=== PATIENT | male | born 1960 | race Caucasian/White ===

== ENCOUNTER 2025-07-09 12:45 | Inpatient (IN) | payer BC, SELFPAY ==
[2025-07-09] VITALS (8 sets, daily range): BP systolic 142–183; BP diastolic 82–101; BMI 31.4
--- NOTE | 2025-07-09 09:17 | ED.GENMED ---
History of Present Illness
General
Chief Complaint: Flank Pain
Source: patient
Time Seen by Provider: 07/09/25 09:06
History of Present Illness
History of Present Illness:
65-year-old male left flank and back pain. Started overnight. Took 3 Advil about an hour ago. Some nausea. Cannot get comfortable with this discomfort. Does not feel musculoskeletal to him. No urinary symptoms. No fever or chills. No change
in bowels.
Past History
Past History
ED Past Medical History: GERD, HTN and Hypercholesterolemia
ED Past Surgical History: Orthopedic
Social History
Tobacco: Other (Occasional cigar)
Alcohol: Occasional
Drug: None
Personal:
Living: with family
Employment: Employed
Family History
Family History: CAD
Review of Systems
Review of Systems
All Other Systems: Not applicable
Constitutional: Denies fever or chills
Phy Exam
Physical Exam
Physical Exam:
GENERAL: Alert and oriented in no apparent distress
EYE: Orbits normal.
NECK: Supple
CARDIAC: Regular rate and rhythm without any obvious murmurs.
LUNGS: Clear breath sounds,normal
ABDOMEN: Soft, without focal tenderness or distention. No CVA tenderness
NEUROLOGICAL: Alert and oriented , grossly non-focal
SKIN: Warm and dry, no rash or lesion, no discoloration, skin intact.
MUSCULOSKELETAL: No edema,no deformity.Good color. No clear musculoskeletal component. No pain with sitting up. No pain with straight leg raising.
PSYCH: Normal and appropriate interaction.
Course
Orders/Labs/Results
Orders:
Orders
07/09/25 09:16
CT Abd/pel Without Iv Or Oral Urgent
Comment:
Reason For Exam: Left flank pain
IV Insert/Care/Rem.- Treatment PRN
0.9% Sodium Chloride 500 ml [Nss] 500 ml IV BOLUS
Acetaminophen 1000MG/100Ml [Ofirmev] 1,000 mg in 100 ml IV ONCE
Acetaminophen IV Indication:: ED Narcotic Naive Pt-ONCE
Ondansetron Injectable [Zofran] 4 mg IV NOW STA
07/09/25 09:25
Complete Blood Count/With Diff Urgent
Comprehensive Metabolic Panel Urgent
07/09/25 09:31
HYDROmorphone [Dilaudid] 0.5 mg .ROUTE .STK-MED ONE
07/09/25 09:32
HYDROmorphone [Dilaudid] 0.5 mg IV NOW STA
07/09/25 09:48
HYDROmorphone [Dilaudid] 0.5 mg IV NOW STA
07/09/25 11:46
Urinalysis Reflex To Culture Urgent
Date Specimen was Collected: 07/09/25
Time Specimen was Collected: 11:41
Urine Microscopic Reflex Cult Urgent
07/09/25 12:12
Admit/Transfer Patient As Directed
Co-Sign Provider:
Level of Care: Inpatient admission
Assign to:: Medical/Surgical
Physician / Group: gabby
Diagnosis: ureteral stone
Reason for Hospitalization: ureteral stone
Expected length of stay greater than two midnights?: Yes
ELOS- Estimated Length of Stay in days: 2
I certify the patient meets the requirements for IP care: Yes
PRN Pain Medication Management As Directed
May give lesser potent ordered pain med per pt: Yes
preference::
Protocol:: Medication orders for pain may be administered in a
manner that supports deferring to patient preference
when the pt is:
- Requesting an ordered lesser potent pain medication.
Least to most potent pain medications are defined
as: acetaminophen < NSAID < tramadol < opioids
(morphine, oxycodone, hydromorphone).
- Requesting a lesser dose of the same medication IF
ORDERED.
- Requesting a less intrusive route of administration
if both routes are prescribed by the provider (PO <
IV).
07/09/25 12:13
Code Status As Directed
Resuscitation Status: Full Code
07/09/25 12:52
HYDROmorphone [Dilaudid] 0.5 mg IV Q4HPRN PRN
07/09/25 13:20
Lorazepam [Ativan] 0.5 mg PO DAILYPRN PRN anxiety
Ondansetron Injectable [Zofran] 4 mg IV Q6HPRN PRN
07/09/25 13:20
UROLOGY CONSULT Routine
Consulting Provider: Dinesh Castanon
Was physician already notified: Yes
Activity As Directed
Activity Level: As Tolerated
Pneumatic Compression Sleeves As Directed
Type: Knee high
Vital Signs As Directed
Frequency: Per unit guidelines
DX Deep Vein Thrombosis Video Routine
07/09/25 20:00
Vit C/Vit E/Lutein/Min/Bridgeton-3 [Ocuvite Softgel] 1 cap PO BID
07/10/25 06:00
Complete Blood Count/With Diff IN AM
Comprehensive Metabolic Panel IN AM
Levothyroxine [Synthroid] 175 mcg PO DAILY@0600
07/10/25 08:00
Atenolol [Tenormin] 50 mg PO DAILY
Atorvastatin [Lipitor] 20 mg PO DAILY
Lactobac/Bifidobac [Visbiome] 1 cap PO DAILY
Multivitamin [Theragran] 1 tablet PO DAILY
Pantoprazole [Protonix] 40 mg PO DAILY
Valsartan [Diovan] 160 mg PO DAILY
Zinc 50mg (Zinc Sulfate 220mg) [Zinc] 50 mg PO DAILY
coenzyme Q10 [CoQ-10] 100 mg PO DAILY
omega-3 fatty acids-fish oil 1 cap PO DAILY
Abnormal Lab Results
07/09/25 07/09/25
11:46
RBC 4.45 L 10^6/uL
(4.70-6.10)
MCV 94.2 H fL
(80.0-94.0)
MCH 31.7 H pg
(27.0-31.0)
MPV 11.4 H fL
(7.4-10.4)
Abs Immat Gran (auto) 0.1 H 10^3/uL
(0-0.05)
Absolute Monos (auto) 0.7 H 10^3/uL
(0.1-0.6)
Immature Gran % 0.8 H %
(0-0.5)
BUN 24 H mg/dl
(9-20)
Glucose 170 H mg/dl
(70-99)
ALT 63 H U/L
(0-50)
Alkaline Phosphatase 178 H U/L
(38-126)
Ur Occult Blood Reflex 4+ A
(Negative)
Urine RBC 40-50 A /HPF
(0-2)
Urine Albumin (Reflex) 2+ A
(Neg - Trace)
07/09/25 09:25
07/09/25 09:25
Vital Signs
Initial and Last Documented VS:
Initial Vital Signs
Temp Pulse Resp BP Pulse Ox
98.6 F 63 16 183/101 98
07/09/25 08:50 07/09/25 08:50 07/09/25 08:50 07/09/25 08:50 07/09/25 08:50
Last Documented Vital Signs
Temp Pulse Resp BP Pulse Ox
98.3 F 70 16 142/93 93
07/09/25 13:21 07/09/25 13:21 07/09/25 13:21 07/09/25 13:21 07/09/25 14:06
MDM/Problems Addressed
Differential Diagnosis Includes:
Patient presenting with nontraumatic left flank pain. Started overnight. Not describing any infectious issues. Does not appear to be obviously musculoskeletal. High on the list would be obstructing kidney stone. Pain management workup in
progress
*Pulse Oximetry
SaO2: 98
Oxygen Mode of Delivery: Room air
Patient hypoxic: no
*Critical Care Note
Total Time (30-74mins, 75-104mins- exclusive of procedures): Not Applicable
Data Reviewed
Review of Other/Old Records Reveals: Labs, Records and Radiology Studies
ED Attending Note
-
Portions of this chart may have been created with voice recognition software.� Occasional wrong word or��sound alike� substitutions may have occurred due to the inherent limitations of voice recognition software.
Discharge Plan
Departure
Patient Disposition: Admit
Date of Disposition: 07/09/25
Time of Disposition: 12:01
Presentation/result/management discussed w/ accepting MD/DO: Urology
Discharge Problem:
Obstructing left kidney stone
Interventions
Interventions:
*Risk Screen - Suicide Last Done: 07/09/25 08:50
*General Assessment Last Done: 07/09/25 08:50
*Neglect/Abuse Screening Last Done: 07/09/25 08:50
*ED- Fall Risk Assessment Last Done: 07/09/25 09:35
*ED COVID-19 Vaccine History Last Done: 07/09/25 13:25
*Nursing Disposition Last Done: 07/09/25 13:22
HS-Irbijt-Hkuvwdfofs Assessment Last Done: 07/09/25 09:35
ED-Male Genitourinary Assessment Last Done: 07/09/25 09:35
Discharge Date and Time
Discharge Date/Time: 07/09/25 13:23
[2025-07-09] MEDS: ZOFRAN 4 MG IV (09:22)
[2025-07-09] MEDS: OFIRMEV 100 IV (09:22)
[2025-07-09] MEDS: NSS 500 IV (09:24)
[2025-07-09 09:32] LABS: Hematocrit 41.9 % (39.0-52.0); Hemoglobin 14.1 g/dL (13.0-18.0); Mean Corp Hgb Conc. 33.7 g/dL (33.0-37.0); Mean Corpuscular Volume 94.2 fL (80.0-94.0); Nucleated Red Blood Cells % 0 % (-); Platelet Count 196 10^3/uL (130-400); Red Cell Dist. Width 12.8 % (11.5-14.5)
[2025-07-09] MEDS: DILAUDID 0.5 MG IV ×4 (09:33→18:05)
[2025-07-09 09:43] LABS: ALT (SGPT) 63 U/L (0-50); AST (SGOT) 41 U/L (17-59); Albumin 4.5 g/dl (3.5-5.0); Alkaline Phosphatase 178 U/L (38-126); Blood Urea Nitrogen 24 mg/dl (9-20); Calcium 9.2 mg/dl (8.4-10.2); Carbon Dioxide 26 mmol/L (22-30); Chloride 106 mmol/L (98-107); Glucose 170 mg/dl (70-99); Potassium 4.5 mmol/L (3.5-5.1); Sodium 138 mmol/L (135-145); Total Protein 7.3 g/dl (6.3-8.2); eGFR > 60.00
[2025-07-09 12:10] LABS: Urine Character Clear (Clear)
--- NOTE | 2025-07-09 12:14 | HPS.HSE ---
Addendum entered and electronically signed by Kenneth Velasco MD 07/09/25 14:27:
Urology planning on intervention on . IV fluids and flomax in the meantime.
Original Note:
Family Physician
-
Family Physician: Bri Becerra
Chief Complaint
-
left flank pain
History of Present Illness
65-year-old male past medical history of nephrolithiasis, hypertension, GERD, hypothyroidism, partial small bowel obstruction presenting with left flank pain starting last night radiating to the groin. Denies any urinary symptoms. Denies blood in
the urine. Denies fevers or chills. Did have some nausea without vomiting. Denies diarrhea.
He smokes cigars on weekends. Alcohol on the weekends.
Medical History
Past Medical History
Past Medical History: Reports Other (nephrolithiasis, hypertension, GERD, hypothyroidism, partial small bowel obstruction)
Past Surgical History: Reports Other (Knee surgery,)
Social History
Tobacco: Smoker
Alcohol: Occasional
Drug: None
Family History
Family History: Not pertinent
Allergies / Home Medications
Allergies reflects when Allergies were last updated in [facility].
Home Medications with original date entered in [facility]
Allergy/Medication List:
Allergies
Allergy/AdvReac Type Severity Reaction Status Date / Time
No Known Allergies Allergy Unverified 07/09/25 08:50
Home Medications
aspirin 81 mg tablet,delayed release 81 mg PO DAILY 06/19/15
atenolol 25 mg tablet 25 mg PO DAILY 06/19/15
atorvastatin 10 mg tablet 10 mg PO QPM 06/19/15
lansoprazole 30 mg capsule,delayed release (Prevacid) 30 mg PO DAILY 06/19/15
levothyroxine 150 mcg tablet 150 mcg PO QPM 06/19/15
multivitamin (Multi-Day tablet) 1 ea PO DAILY 06/19/15
omega 0-kfr-btg-fish oil 500 mg (200mg-300mg)-1,000 mg capsule 1 ea PO BID 12/07/19
Review of Systems
-
History Source: Patient
A 12 point ROS was completed and negative except as noted: Yes
Constitutional: Reports No Symptoms
EENT: Reports No Symptoms
Respiratory: Reports No Symptoms
Cardiac: Reports No Symptoms
Abdomen/GI: Reports No Symptoms
: Reports See HPI
Musculoskeletal: Reports No Symptoms
Skin: Reports No Symptoms
Neurological: Reports No Symptoms
Endocrine: Reports No Symptoms
Hematologic/Lymphatic: Reports No Symptoms
Psych: Reports No Symptoms
Physical Exam
Vital Signs
Vital Signs
Temp Pulse Resp BP Pulse Ox
98.6 F 63 16 164/97 98
07/09/25 08:50 07/09/25 08:50 07/09/25 08:50 07/09/25 10:10 07/09/25 09:20
Physical Exam
General: Well Developed, Well Nourished and No Apparent Distress
HEENT: NormoCephalic, Moist mucous membranes and Atraumatic
Respiratory: Clear
Cardiac: S1/S2 and Regular Rhythm; No Murmur or Rub
GI: Soft, Non Tender, Non Distended and Normal Bowel Sounds; No Organomegaly
Rectal: Deferred by Provider
Musculoskeletal: No Clubbing, No Cyanosis and No Edema
Skin: No Rash
Neuro: Nonfocal/grossly intact
Laboratory Results
-
07/09/25 09:25
07/09/25 09:25
Laboratory Results
Total Bilirubin 0.6 mg/dl (0.2-1.3) 07/09/25 09:25
AST 41 U/L (17-59) 07/09/25 09:25
ALT 63 U/L (0-50) H 07/09/25 09:25
Alkaline Phosphatase 178 U/L (38-126) H 07/09/25 09:25
Data Reviewed
-
Lab Data: Labs Reviewed by me
Old Records: Reviewed
Impression/Plan
-
IMPRESSION:
PLAN:
# Proximal left ureteral stone
-Not septic
- N.p.o.
- IV fluids
-Zofran, Dilaudid as needed
- Urology consulted
Essential hypertension
- Continue atenolol
- Hold aspirin
GERD
- Continue lansoprazole
Hypothyroidism
- Continue levothyroxine
History of partial small bowel obstruction
Hypercholesterolemia
- Continue statin
Full code
DVT prophylaxis�SCDs
N.p.o.
--- NOTE | 2025-07-09 12:27 | CM ---
CM reviewed chart and met with pt and his bedside in ED. Lives with in 2 story home, 2-3 CHARU, has first floor half bath.
Independent in ADLs, personal care and ambulation at baseline. No assistive device, no DME
Confirms prescription coverage.
No hx VN or SNF
PCP: Bri Becerra
Pharmacy: [facility]
Anticipate discharge home, CM will continue to follow for all discharge planning needs.
[2025-07-09 12:50] LABS: Urine Red Blood Cell 40-50 /HPF (0-2); Urine White Cell 0-2 /HPF (0-5)
--- NOTE | 2025-07-09 14:12 | PTCARENOTE ---
pt presents from ED via stretcher. pt is AAO*3, Vss, room air. pt denies any pain at this time. pt is oriented to the room. call powell within the reach. plan of care ongoing.
--- NOTE | 2025-07-09 14:43 | CONS.URO ---
Consultation
-
Date/Time Consultation Requested: 07/09
Date/Time Consultation Performed: 07/09
Requesting Provider: Hospitalist
Performing Provider: Lg
Reason for Consultation: intractable renal colic, obstructing left ureteral stone
Medical History
History of Present Illness
65M presenting to [facility] ED w/ left flank pain starting last night w/ radiation to the right groin.
Denies LUTS.
Denies hematuria or dysuria.
+nausea w/o vomiting.
Denies F/C.
In ED, despite Toradol and opioid analgesics, patient was no able to get comfortable enough for discharge on MET.
Admitted for pain control and IVF hydration.
Previously saw Dr. Carrasco in office after UTI episode - cystoscopy in 2023 WNL.
Past Medical History
Past Medical History: GERD, HTN, Hypothyroidism and Other (pSBO, nephrolithiasis)
Past Surgical History: Orthopedic (knee surgery)
Social History
Tobacco: Smoker (cigars on weekends)
Alcohol: Occasional
Drug: None
Personal:
Living: With Family
Employment: Employed
Family History
Family History: Reviewed & Not Pertinent
Allergies/Home Medications
Allergies
Allergy/AdvReac Type Severity Reaction Status Date / Time
No Known Allergies Allergy Unverified 07/09/25 08:50
Home Medications
�Medication �Instructions �Recorded �Confirmed �Type
lansoprazole 30 mg capsule,delayed 30 mg PO DAILY Gastrointestinal 06/19/15 07/09/25 History
release (Prevacid) Issue
Lactobac no.2-Bifidobac no.1-S. 1 cap PO DAILY Supplement 07/09/25 07/09/25 History
thermo 112.5 billion cell capsule
(Visbiome)
atenolol 50 mg tablet 50 mg PO DAILY Blood Pressure 07/09/25 07/09/25 History
atorvastatin 20 mg tablet 20 mg PO DAILY High Cholesterol 07/09/25 07/09/25 History
coenzyme Q10 100 mg capsule 100 mg PO DAILY Supplement 07/09/25 07/09/25 History
(CoQ-10)
levothyroxine 175 mcg tablet 175 mcg PO DAILY Thyroid 07/09/25 07/09/25 History
lorazepam 0.5 mg tablet 0.5 mg PO DAILYPRN PRN anxiety 07/09/25 07/09/25 History
omega-3 fatty acids-fish oil 684 1 cap PO DAILY Supplement 07/09/25 07/09/25 History
mg-1,200 mg capsule,delayed release
ranibizumab 0.3 mg/0.05 mL 0.3 mg intravitreal Q28D Eye 07/09/25 07/09/25 History
intravitreal solution for Condition
injection (Lucentis)
therapeutic multivitamin 1 tab PO DAILY Supplement 07/09/25 07/09/25 History
valsartan 160 mg tablet 160 mg PO DAILY Blood Pressure 07/09/25 07/09/25 History
vit C 250 mg-vit E 90 mg-zinc 40 1 tab PO BID Supplement 07/09/25 07/09/25 History
mg-copper 1 [id number]
capsule (PreserVision AREDS-2)
zinc acetate 50 mg (zinc) capsule 50 mg PO DAILY Supplement 07/09/25 07/09/25 History
Review of Systems
-
History Source: Patient
A 12 point Review of Systems was completed except as noted: Yes
Physical Exam
Vital Signs
Vital Signs
Temp Pulse Resp BP Pulse Ox
98.3 F 70 16 142/93 93
07/09/25 13:21 07/09/25 13:21 07/09/25 13:21 07/09/25 13:21 07/09/25 14:06
Lab / Testing Results
Laboratory Results
07/09/25 09:25
07/09/25 09:25
Physical Exam
General: Well Developed and Well Nourished
HEENT: Normocephalic and Anicteric
Respiratory: Non Labored Respirations
Cardiac: S1/S2
Breast: N/A
GI: Soft, Non Tender and Non Distended
Rectal: Deferred by Provider
Genito-urinary: No Costovertebral Tend and Clear Urine
Musculoskeletal: No Edema
Skin: Warm and Dry
Neuro: AO x 3, No Motor Deficits and Nonfocal/Grossly Intact
Hematologic/Lymphatic: No Lymphadenopathy
Psych: Calm and Intact Judgement
Assessment / Plan
-
Intractable left renal colic
Obstructing proximal left ureteral stone
Nausea
Non-toxic, HDS
UA not indicative of UTI
WBC WNL
Cr WNL
CT imaging reviewed => obstructing 5 mm proximal left ureteral stone w/ hydronephrosis.
- To OR Tues AM (07/11) w/ Dr. Carrasco for left ULS
- NPO@NC Mon 07/10 (ordered)
- IVF hydration, generous PO fluid intake
- Tamsulosin 0.4 mg qhs
- Strain urine
Data Reviewed
-
Total Time Spent with Patient (in minutes): 35
CT Scan: Image personally visualized and interpreted, Report Reviewed by Me, Discussed with Physician, Discussed with Patient and Discussed with Family
Lab Data: Labs Reviewed, Discussed with Physician, Discussed with Patient and Discussed with Family
Old Records: Reviewed
[2025-07-09] MEDS: TORADOL 15 MG IV ×2 (15:36→22:03)
[2025-07-09] MEDS: OCUVITE SOFTGEL 1 CAP PO (20:14)
[2025-07-09] MEDS: FLOMAX 0.4 MG PO (21:16)
[2025-07-09] MEDS: DIOVAN 160 MG PO (22:14)
[2025-07-10 03:15] VITALS: BP 129/77
[2025-07-10] MEDS: SYNTHROID 175 MCG PO (04:11)
[2025-07-10] MEDS: TORADOL 15 MG IV ×2 (04:12→10:59)
[2025-07-10 04:19] VITALS: BP 134/94
[2025-07-10] MEDS: NSS 1000 IV ×2 (05:01→18:25)
[2025-07-10] MEDS: TENORMIN 50 MG PO (07:57)
[2025-07-10] MEDS: ZINC 50 MG PO (07:57)
[2025-07-10] MEDS: PROTONIX 40 MG PO (07:57)
[2025-07-10] MEDS: THERAGRAN 1 TABLET PO (07:57)
[2025-07-10] MEDS: DIOVAN 160 MG PO (07:57)
[2025-07-10] MEDS: OCUVITE SOFTGEL 1 CAP PO ×2 (07:57→20:25)
[2025-07-10] MEDS: VISBIOME 1 CAP PO (07:57)
[2025-07-10 08:27] VITALS: BP 152/88
[2025-07-10 09:07] LABS: Hematocrit 40.1 % (39.0-52.0); Hemoglobin 13.7 g/dL (13.0-18.0); Mean Corp Hgb Conc. 34.2 g/dL (33.0-37.0); Mean Corpuscular Volume 94.8 fL (80.0-94.0); Nucleated Red Blood Cells % 0 % (-); Platelet Count 177 10^3/uL (130-400); Red Cell Dist. Width 13.0 % (11.5-14.5)
--- NOTE | 2025-07-10 09:11 | PTCARENOTE ---
pt aaox3. states 2/10 pain in left flank. pain meds given as ordered. room air. ivf running as ordered. heart tone reg.
[2025-07-10 09:49] LABS: ALT (SGPT) 49 U/L (0-50); AST (SGOT) 33 U/L (17-59); Albumin 4.2 g/dl (3.5-5.0); Alkaline Phosphatase 127 U/L (38-126); Blood Urea Nitrogen 26 mg/dl (9-20); Calcium 9.6 mg/dl (8.4-10.2); Carbon Dioxide 23 mmol/L (22-30); Chloride 106 mmol/L (98-107); Estimated Creatinine Clearance 47 ml/min; Glucose 135 mg/dl (70-99); Potassium 4.6 mmol/L (3.5-5.1); Sodium 137 mmol/L (135-145); Total Protein 6.7 g/dl (6.3-8.2); eGFR 46.93
--- NOTE | 2025-07-10 14:04 | W.PN.UPDATE ---
Update Note
Progress Note Update
Obstructing proximal left ureteral stone
Intractable renal colic
Subjectively, pain greatly improved w/ analgesics today.
Afebrile, VSS.
Plan:
- NPO@CO for OR tomorrow
- To OR 07/11 for left ULS (Dr. Carrasco)
D/w patient this afternoon.
[2025-07-10] MEDS: DILAUDID 0.5 MG IV (14:37)
--- NOTE | 2025-07-10 14:53 | W.PN.UPDATE ---
Update Note
Progress Note Update
Proximal left ureteral stone without evidence of sepsis
No white count, afebrile, no CVA tenderness
Continue n.p.o.
IV fluids
Zofran Dilaudid
Discontinue Toradol
Urology
PRESTON
Bladder scan
IV fluids
Urine creatinine routine
Avoid nephrotoxins
Avoid hypotension
Monitor urinary output
GERD
Continue PPI
Hypothyroidism
Continue levothyroxine
Hyperlipidemia
Continue statin
Hypertension
Continue atenolol
Hold aspirin
--- NOTE | 2025-07-10 14:54 | CM ---
Met with pt bedside. OR planned for tomorrow. told pt he nay be discharged after the procedure.No discharge needs identified at this time. Will follow for post-op discharge needs
Plan: TBD post op.
[2025-07-10 15:57] VITALS: BP 154/87
[2025-07-10 16:19] LABS: Microalb - Urine Creatinine 36.200 mg/dl
[2025-07-10 16:57] LABS: Microalbumin, Random Urine < 0.6 mg/dl (0.6-1.7)
[2025-07-10 18:58] LABS: Blood Urea Nitrogen 28 mg/dl (9-20); Calcium 9.0 mg/dl (8.4-10.2); Carbon Dioxide 25 mmol/L (22-30); Chloride 106 mmol/L (98-107); Estimated Creatinine Clearance 44 ml/min; Glucose 158 mg/dl (70-99); Potassium 4.1 mmol/L (3.5-5.1); Sodium 137 mmol/L (135-145); eGFR 43.64
--- NOTE | 2025-07-10 20:23 | W.PN.HOSP.TC ---
Addendum entered and electronically signed by Francisco Crabtree MD 07/11/25 13:47:
see update note
Original Note:
Today's Communication/Plan
-
Maintain IV fluids
Bladder scan
Hold Toradol
Assessment / Plan
Assessment / Plan
#Proximal left ureteral stone without evidence of sepsis
No white count, afebrile, no CVA tenderness
Continue n.p.o.
IV fluids
Zofran Dilaudid
Discontinue Toradol
Urology consulted yesterday
#PRESTON
Creatinine 1.1-->1.6-->1.7
Bladder scan has been ordered to rule out obstructive uropathy and to assess the bladder emptying
IV fluids
Monitor urinary outputs
Urine creatinine monitor
Avoid nephrotoxins
Avoid hypotension
#GERD
Continue PPI
#Hypothyroidism
Continue levothyroxine
#Hyperlipidemia
Continue statin
#Hypertension
Continue atenolol
Hold aspirin
Anticipated Discharge: > 48 hours
Subjective/Interval History
-
Date of Service: July 10, 2025
patient was comfortable and stated that he has not had any pain overnight and that was controlled with pain medication , he stated mild left flank pain when he changes his position and mild soreness on his left lower abdomen. He denied fever, chills
, abd pain , shortness of breath , chest pain, nausea , vomiting, or dysuria.
Objective Data
-
Labs:
Laboratory Results
07/10/25 07/10/25
07:37 18:31
WBC 9.4
Hgb 13.7
Hct 40.1
Plt Count 177
Sodium 137 137
Potassium 4.6 4.1
Chloride 106 106
Carbon Dioxide 23 25
BUN 26 H 28 H
Creatinine 1.6 H 1.7 H
Glucose 135 H 158 H
Calcium 9.6 9.0
Total Bilirubin 0.7
AST 33
ALT 49
Alkaline Phosphatase 127 H
Vital Signs:
Vital Signs
Temp Pulse Resp BP Pulse Ox
98 F 60 18 154/87 97
07/10/25 15:57 07/10/25 15:57 07/10/25 15:57 07/10/25 15:57 07/10/25 15:57
I&O
07/09/25 07/10/25 07/11/25
06:59 06:59 06:59
Intake Total 350 / 350 720 / 720
Output Total 975 / 975 500 / 500
Balance -625 / -625 220 / 220
Review of Systems
-
History Source: Patient
All other systems: Not reviewed unless documented
Physical Exam
-
General: Well Developed and Well Nourished
Respiratory: Clear to Auscultation
Cardiac: Regular Rhythm and S1/S2
GI: Nontender and Distended
Musculoskeletal: No Cyanosis and No Edema
[2025-07-10 20:25] VITALS: BP 179/97
[2025-07-10] MEDS: TYLENOL 650 MG PO (21:40)
[2025-07-10] MEDS: MIRALAX 17 GRAMS PO (21:45)
[2025-07-10] MEDS: COLACE 100 MG PO (21:46)
[2025-07-10] MEDS: FLOMAX 0.4 MG PO (21:46)
[2025-07-10] MEDS: PROCARDIA XL (EXTENDED RELEASE) 30 MG PO (21:46)
[2025-07-10 23:00] VITALS: BP 173/96
[2025-07-11] VITALS (14 sets, daily range): BP systolic 81–156; BP diastolic 51–92
[2025-07-11] MEDS: DILAUDID 0.5 MG IV ×2 (01:05→08:02)
[2025-07-11] MEDS: NSS 1000 IV ×3 (05:38→23:25)
[2025-07-11] MEDS: SYNTHROID 175 MCG PO (05:39)
[2025-07-11 06:47] LABS: Hematocrit 39.3 % (39.0-52.0); Hemoglobin 13.2 g/dL (13.0-18.0); Mean Corp Hgb Conc. 33.6 g/dL (33.0-37.0); Mean Corpuscular Volume 94.7 fL (80.0-94.0); Nucleated Red Blood Cells % 0 % (-); Platelet Count 172 10^3/uL (130-400); Red Cell Dist. Width 13.0 % (11.5-14.5)
[2025-07-11] MEDS: VISBIOME PO ×2 (08:02→08:21)
[2025-07-11] MEDS: OCUVITE SOFTGEL PO ×2 (08:02→08:20)
[2025-07-11] MEDS: THERAGRAN PO ×2 (08:02→08:20)
[2025-07-11] MEDS: PROTONIX PO ×2 (08:02→08:20)
[2025-07-11] MEDS: TENORMIN 50 MG PO (08:02)
[2025-07-11] MEDS: ZINC PO ×2 (08:02→08:21)
--- NOTE | 2025-07-11 10:37 | W.PN.URO.CBU ---
Today's Communication / Plan
-
- Reg diet
- Trend renal function
- Start tamsulosin 0.4mg daily for next 3 weeks
Outpatient follow up for stone removal in about 2 weeks
Assessment / Plan
-
65M with intractable pain and PRESTON from 4mm L prox ureteral stone
s/p laser lithotripsy, stent placement 07/11
- Reg diet
- Trend renal function, PRESTON likely due to obstructive uropathy
- Start tamsulosin 0.4mg daily for next 3 weeks until after stent removed which may reduce any stent colic given patient's enlarged prostate
Outpatient follow up for stone removal in about 2 weeks
Diagnosis
-
Date of Service: July 11, 2025
-
Patient Diagnosis:
L ureteral stone
PRESTON
s/p L ureteroscopy 07/11
Post Op Day:
Subjective
-
post op
Objective
-
Vital Signs
Temp Pulse Resp BP Pulse Ox
97.5 F 73 16 130/80 97
07/11/25 07:35 07/11/25 08:02 07/11/25 07:35 07/11/25 08:02 07/11/25 07:35
Intake and Output
07/10/25 07/11/25 07/12/25
06:59 06:59 06:59
Intake Total 350 / 350 960 / 960
Output Total 975 / 975 2460 / 2460 1200 / 1200
Balance -625 / -625 -1500 / -1500 -1200 / -1200
Intake:
Oral fluids 350 / 350 960 / 960
Output:
Urine, Voided 975 / 975 2460 / 2460 1200 / 1200
Other:
Number of approximated MODERATE 1
amounts of urine
Number of approximated LARGE 1
amounts of urine
Laboratory Results
07/11/25 06:13
Physical Exam
-
General - well developed, well nourished, no acute distress
Chest - clear
Abdomen - soft, non-tender
[2025-07-11 10:52] LABS: Blood Urea Nitrogen 26 mg/dl (9-20); Calcium 9.2 mg/dl (8.4-10.2); Carbon Dioxide 24 mmol/L (22-30); Chloride 108 mmol/L (98-107); Estimated Creatinine Clearance 47 ml/min; Glucose 125 mg/dl (70-99); Potassium 4.5 mmol/L (3.5-5.1); Sodium 138 mmol/L (135-145); eGFR 46.93
--- NOTE | 2025-07-11 11:19 | CM ---
Addendum entered by Cris Danielle 07/11/25 15:04:
Patient seen at bedside in [address] [place] [address] with present. Patient completed IMM and signed form placed on chart. Patient for tentative discharge tomorrow per nursing. CM will continue to follow for discharge planning needs.
Plan; home with no needs anticipated at this time.
Original Note:
Patient out of room to OR. CM will review medical treatment plan following patient return to room. CM will continue to follow for discharge planning needs.
Plan; pending medical treatment plan
--- NOTE | 2025-07-11 13:47 | W.PN.UPDATE ---
Update Note
Progress Note Update
Proximal left ureteral stone without evidence of sepsis
s/p stone removal and stent placement
ivf
analgesics
uro ofllow up
PRESTON
Bladder scan
IV fluids
Avoid nephrotoxins
Avoid hypotension
Monitor urinary output
GERD
Continue PPI
Hypothyroidism
Continue levothyroxine
Hyperlipidemia
Continue statin
Hypertension
Continue atenolol
Hold aspirin
--- NOTE | 2025-07-11 17:48 | W.PN.HOSP.TC ---
Addendum entered and electronically signed by Francisco Crabtree MD 07/12/25 13:41:
see update note
Original Note:
Today's Communication/Plan
-
Urine function is normal today and planned to D/C home today on Tamsulosin 0.4 mg per urologist recommendation and follow up with urology as an outpatient in 2 weeks.
Assessment / Plan
Assessment / Plan
65-year-old male past medical history of nephrolithiasis, hypertension, GERD, hypothyroidism, partial small bowel obstruction presenting with left flank pain starting last night radiating to the groin.
#Proximal left ureteral stone without evidence of sepsis
CT of abd and pelvise :0.4-0.5 cm calculus in the proximal left ureter with mild left renal collecting system dilatation and perinephric stranding
No white count, afebrile, no CVA tenderness
L ureteroscopy with stent placement on 07/11
regular diet
IV fluids
Zofran Dilaudid prn
Discontinue Toradol
Start tamsulosin 0.4mg daily for next 3 weeks until after stent removed which may reduce any stent colic given patient's enlarged prostate
Urology consulted
#PRESTON
bladder scan
likely due to obstructive uropathy
Creatinine 1.1-->1.6-->1.7-->1.6
IV fluids
Monitor urinary outputs
monitor renal function
Avoid nephrotoxins
Avoid hypotension
if creatinine normal will discharge him home today
#GERD
Continue PPI
#Hypothyroidism
Continue levothyroxine
#Hyperlipidemia
Continue statin
#Hypertension
Continue atenolol
Hold aspirin
Anticipated Discharge: Today
Subjective/Interval History
-
Date of Service: July 11, 2025
patient has hematuria and dysuria after the left ureter stent placement. no SOB, chest pain , abdominal pain, fever, chills
Objective Data
-
Labs:
Laboratory Results
07/11/25
06:13
WBC 9.0
Hgb 13.2
Hct 39.3
Plt Count 172
Sodium 138
Potassium 4.5
Chloride 108 H
Carbon Dioxide 24
BUN 26 H
Creatinine 1.6 H
Glucose 125 H
Calcium 9.2
Vital Signs:
Vital Signs
Temp Pulse Resp BP Pulse Ox
98 F 61 17 118/75 98
07/11/25 15:00 07/11/25 15:00 07/11/25 15:00 07/11/25 15:00 07/11/25 15:00
I&O
07/10/25 07/11/25 07/12/25
06:59 06:59 06:59
Intake Total 350 / 350 960 / 960 500 / 500
Output Total 975 / 975 2460 / 2460 1795 / 1795
Balance -625 / -625 -1500 / -1500 -1295 / -1295
Review of Systems
-
History Source: Patient
Constitutional: Reports No Symptoms
Respiratory: Reports No Symptoms
Cardiac: Reports No Symptoms
Abdomen/GI: Reports No Symptoms
Genitourinary: Reports Dysuria and Other (blood in urine )
Musculoskeletal: Reports No Symptoms
Neuro: Reports No Symptoms
Physical Exam
-
General: Well Developed and Well Nourished
HEENT: Normocephalic and Atraumatic
Respiratory: Clear to Auscultation
Cardiac: Regular Rhythm and S1/S2
GI: Soft and Nontender
Genito-urinary: No Costovertebral Tender
Musculoskeletal: No Clubbing, No Cyanosis and No Edema
Skin: Warm and Dry
Neuro: Awake, Alert and Oriented
Psych: Calm
[2025-07-11] MEDS: OCUVITE SOFTGEL 1 CAP PO (20:03)
[2025-07-11] MEDS: COLACE 100 MG PO (20:03)
[2025-07-11] MEDS: MIRALAX 17 GRAMS PO (20:03)
[2025-07-11] MEDS: FLOMAX 0.4 MG PO (21:00)
[2025-07-12] MEDS: NSS 1000 IV (05:30)
[2025-07-12] MEDS: SYNTHROID 175 MCG PO (05:31)
[2025-07-12 07:30] VITALS: BP 170/92
[2025-07-12 07:48] LABS: Hematocrit 37.3 % (39.0-52.0); Hemoglobin 12.5 g/dL (13.0-18.0); Mean Corp Hgb Conc. 33.5 g/dL (33.0-37.0); Mean Corpuscular Volume 96.4 fL (80.0-94.0); Nucleated Red Blood Cells % 0 % (-); Platelet Count 176 10^3/uL (130-400); Red Cell Dist. Width 13.0 % (11.5-14.5)
[2025-07-12 08:06] LABS: ALT (SGPT) 36 U/L (0-50); AST (SGOT) 22 U/L (17-59); Albumin 4.0 g/dl (3.5-5.0); Alkaline Phosphatase 132 U/L (38-126); Blood Urea Nitrogen 19 mg/dl (9-20); Calcium 9.0 mg/dl (8.4-10.2); Carbon Dioxide 23 mmol/L (22-30); Chloride 110 mmol/L (98-107); Estimated Creatinine Clearance 68 ml/min; Glucose 149 mg/dl (70-99); Potassium 4.7 mmol/L (3.5-5.1); Sodium 140 mmol/L (135-145); Total Protein 6.5 g/dl (6.3-8.2); eGFR > 60.00
[2025-07-12] MEDS: ZINC 50 MG PO (08:14)
[2025-07-12] MEDS: THERAGRAN 1 TABLET PO (08:15)
[2025-07-12] MEDS: TENORMIN 50 MG PO (08:15)
[2025-07-12] MEDS: VISBIOME 1 CAP PO (08:15)
[2025-07-12] MEDS: OCUVITE SOFTGEL 1 CAP PO (08:15)
[2025-07-12] MEDS: PROTONIX 40 MG PO (08:15)
--- NOTE | 2025-07-12 08:59 | W.PN.URO.CBU ---
Today's Communication / Plan
-
- PRESTON resolved after kidney unobstructed
- Continue tamsulosin
Outpatient follow up for stent removal in about 2 weeks - office will call to schedule
Assessment / Plan
-
65M with intractable pain and PRESTON from 4mm L prox ureteral stone
s/p laser lithotripsy, stent placement 07/11
- PRESTON resolved after kidney unobstructed
- Continue tamsulosin
Outpatient follow up for stent removal in about 2 weeks - office will call to schedule
Diagnosis
-
Date of Service: July 12, 2025
-
Patient Diagnosis:
L ureteral stone
PRESTON
s/p L ureteroscopy 07/11
Subjective
-
no events overnight
some frequency/stent symptoms
Objective
-
Vital Signs
Temp Pulse Resp BP Pulse Ox
97.9 F 69 17 170/92 97
07/12/25 07:30 07/12/25 07:30 07/12/25 07:30 07/12/25 07:30 07/12/25 07:30
Intake and Output
07/11/25 07/12/25 07/13/25
06:59 06:59 06:59
Intake Total 960 / 960 2540 / 2540
Output Total 2660 / 2660 2995 / 2995 325 / 325
Balance -1700 / -1700 -455 / -455 -325 / -325
Intake:
Oral fluids 960 / 960 240 / 240
IV fluids (Total) 2300 / 2300
Normosal 500 / 500
Output:
Urine, Voided 2660 / 2660 2995 / 2995 325 / 325
Other:
Number of approximated MODERATE 1 2
amounts of urine
Laboratory Results
07/12/25 07:09
07/12/25 07:09
Physical Exam
-
General - well developed, well nourished, no acute distress
[2025-07-12 09:30] VITALS: BP 156/80
--- NOTE | 2025-07-12 11:56 | W.PN.HOSP.TC ---
Addendum entered and electronically signed by Francisco Crabtree MD 07/12/25 13:41:
dc home with juancarlos
outpatietn uro follow
contineu flomax
Original Note:
Today's Communication/Plan
-
Planned to discharge the patient today as his kidney function is normal.
Per urologist recom. continue tamsulosin 0.4 mg for three weeks and follow up with urologist as an outpatient in 2 weeks
Assessment / Plan
Assessment / Plan
65-year-old male past medical history of nephrolithiasis, hypertension, GERD, hypothyroidism, partial small bowel obstruction presenting with left flank pain starting last night radiating to the groin.
#Proximal left ureteral stone without evidence of sepsis
CT of abd and pelvise :0.4-0.5 cm calculus in the proximal left ureter with mild left renal collecting system dilatation and perinephric stranding
No white count, afebrile, no CVA tenderness
L ureteroscopy with stent placement on 07/11
Bladder scan 07/11/2025 to exclude incomplete bladder emptying function and was normal
regular diet
IV fluids
Zofran Dilaudid
Discontinue Toradol
Urologist Started him on tamsulosin 0.4mg daily for next 3 weeks until after stent removed which may reduce any stent colic given patient's enlarged prostate
Planned to d/c home today as his kidney function improved
#PRESTON
bladder scan
likely due to obstructive uropathy
Creatinine 1.1-->1.6-->1.7-->1.6--> 1.1 today and BUN: 26--> 19 today
IV fluids
Monitor urinary outputs
monitor renal function
Avoid nephrotoxins
Avoid hypotension
if creatinine normal will discharge him home
#GERD
Continue PPI
#Hypothyroidism
Continue levothyroxine
#Hyperlipidemia
Continue statin
#Hypertension
Continue atenolol
Hold aspirin
Anticipated Discharge: Today
Subjective/Interval History
-
Date of Service: July 12, 2025
Patient is feeling good today , no hematuria , no urinary frequency no abdominal pain , no fever, no chills
Objective Data
-
Labs:
Laboratory Results
07/12/25
07:09
WBC 10.0
Hgb 12.5 L
Hct 37.3 L
Plt Count 176
Sodium 140
Potassium 4.7
Chloride 110 H
Carbon Dioxide 23
BUN 19
Creatinine 1.1
Glucose 149 H
Calcium 9.0
Total Bilirubin 0.3
AST 22
ALT 36
Alkaline Phosphatase 132 H
Vital Signs:
Vital Signs
Temp Pulse Resp BP Pulse Ox
97.9 F 70 17 156/80 97
07/12/25 07:30 07/12/25 09:30 07/12/25 07:30 07/12/25 09:30 07/12/25 07:30
I&O
07/11/25 07/12/25 07/13/25
06:59 06:59 06:59
Intake Total 960 / 960 2540 / 2540
Output Total 2660 / 2660 2995 / 2995 325 / 325
Balance -1700 / -1700 -455 / -455 -325 / -325
Review of Systems
-
History Source: Patient
Constitutional: Reports No Symptoms
Respiratory: Reports No Symptoms
Cardiac: Reports No Symptoms
Abdomen/GI: Reports No Symptoms
Genitourinary: Reports No Symptoms
Musculoskeletal: Reports No Symptoms
Neuro: Reports No Symptoms
Physical Exam
-
General: Well Developed and Well Nourished
HEENT: Normocephalic and Atraumatic
Respiratory: Clear to Auscultation
Cardiac: Regular Rhythm and S1/S2
GI: Soft and Nontender
Genito-urinary: No Costovertebral Tender
Musculoskeletal: No Clubbing, No Cyanosis and No Edema
Skin: Warm and Dry
Neuro: Awake, Alert and Oriented
Psych: Calm
--- NOTE | 2025-07-12 13:30 | W.DCSUMMARY ---
Discharge Summary
Discharge Data
Date of Admission: 07/09/25
Date of Discharge: 07/12/25
-
Pending Results: No
Additional Pending Results:
Discharging Physician:
Sakina Mccurdy
Disposition:
Home
Primary Care Physician:
Bri Becerra
Principal Discharge Diagnosis:
Obstructing Left Kidney Stone
Chronic Discharge Diagnosis:
Hypertension, GERD, hypothyroidism and partial small bowel obstruction
Hospital Course:
65-year-old male presenting with left flank pain started on 07/08/2025 radiating to the groin. Denies any urinary symptoms. Denies blood in the urine. Denies fevers or chills. Did have some nausea without vomiting. Denies diarrhea. At the ED CT
Abd/pel Without Iv Or Oral had been done and showed 0.4-0.5 cm calculus is seen in the proximal left ureter with mild left renal collecting system dilatation. Blood test results did not show any sign of infection. He placed on IV fluids and and was
NPO, given Zofran for nausea and admitted for further management by urology team.
During Hospitalization He received IV fluids and Left ureter laser lithotripsy and stent placement was done on 07/11/2025 and patient had not had any complication from the procedure.
His bladder found to be distended and tender per examination and the creatinine and BUN were still elevated same day after the procedure and the bladder scan test was done to exclude bladder emptying dysfunction on 07/11/2025 and the bladder function
was normal. The patient has been placed on Tamsulosin 0.4 mg orally daily after the procedure and to continue taking after the discharge to prevent any stent colic pain and given patient enlarged prostate. Urologist recommended to follow up in two
weeks as an outpatient.
Patient kidney function was normal the morning of the discharge day and he discharged with stable condition.
Important Imaging Findings:
07/09/2025: CT Abd/pel Without Iv Or Oral
CHEST:The included lung bases are predominantly clear.
ABDOMEN:0.4-0.5 cm calculus is seen in the proximal left ureter with mild left renal collecting system dilatation and perinephric stranding. No right-sided urinary tract calculus is seen. Organs of the abdomen are limited without intravenous
contrast without gross focal intrinsic abnormality of the gallbladder, spleen, pancreas, adrenal glands or right kidney. There is no biliary tract dilatation or findings to suggest right-sided obstructive uropathy. The abdominal aorta is normal in
caliber with calcific atherosclerotic changes. There is no retroperitoneal lymphadenopathy. Evaluation of the intestinal tract is limited without oral contrast, without intestinal obstruction or free air.
PELVIS:The urinary bladder is incompletely distended and unopacified, limited. There is no true pelvis free fluid or significant lymphadenopathy.
SKELETON:No focal suspicious osseous lesion.
Important Procedures:
07/11/2025: Left ureter laser lithotripsy, stent placement
Discharge Plan
-
Patient Disposition: Home (Routine Discharge)
Discharge Diagnosis/Procedures: Obstructive left kidney stone
Diet: Regular
Activity: As tolerated
Driving Restrictions: As prior to admission
Bathing Restrictions: OK to Shower
Activity Restrictions/Additional Instructions:
The urology office will call to schedule stent removal in the office in about 2 weeks
While the stent is in, you may notice blood in the urine off and on as well as frequent urination and some flank pain
Take tylenol or ibuprofen as needed for pain
You can purchase phenazopyridine (common brand AZO) at your pharmacy to help with any urinary burning
Tamsulosin was sent to your pharmacy to take once daily which can help reduce flank pain while urinating
Referrals:
Bri Becerra MD [Family Provider, Family Practice] - in less than 1 week
Additional Discharge Medication Instructions: Urology added Tamsulosin 0.4 mg for three weeks.
Prescriptions:
New
tamsulosin 0.4 mg Capsule
0.4 mg PO HS Qty: 30 0RF
Continued
lansoprazole [Prevacid] 30 MG capsule,delayed release(DR/EC)
30 mg PO DAILY
atenolol 50 mg tablet
50 mg PO DAILY
levothyroxine 175 mcg tablet
175 mcg PO DAILY
atorvastatin 20 mg tablet
20 mg PO DAILY
zinc acetate 50 mg (zinc) Capsule
50 mg PO DAILY
therapeutic multivitamin Tablet
1 tab PO DAILY
lorazepam 0.5 mg tablet
0.5 mg PO DAILYPRN PRN (Reason: anxiety)
valsartan 160 mg tablet
160 mg PO DAILY
coenzyme Q10 [CoQ-10] 100 mg Capsule
100 mg PO DAILY
Visbiome 112.5 billion cell Capsule
1 cap PO DAILY
omega-3 fatty acids-fish oil 684-1,200 mg Capsule,Delayed Release(Dr/Ec)
1 cap PO DAILY
Lucentis 0.3 mg/0.05 mL Solution
0.3 mg INTRAVITREAL Q28D
PreserVision AREDS-2 250-90-40-1 mg Capsule
1 tab PO BID
Discharge Orders:
Discharge Patient (As Directed); Ordered 07/12/25
Ordered By: Sakina Duggan
Discharge Date and Time
Discharge Date/Time: 07/12/25 10:10
Print Language: [place]
== END 2025-07-12 10:10 | disposition home or self-care (01) | DRG 660 ==
LOC: 2 SOUTH 12:45
PROVIDERS: Specialist Research Data Abstracter/Coder; Urology; ADMITTING PHYSICIAN Hospitalist; ATTENDING PHYSICIAN Hospitalist; CONSULT PHYSICIAN Surgery; EMERGENCY PHYSICIAN Emergency Medicine; FAMILY PHYSICIAN Family Medicine
PROC: 0TF78ZZ Fragmentation in Left Ureter, Via Natural or Artificial Opening Endoscopic (ICD-10-PCS; 2025-07-11)
PROC: 0T778DZ Dilation of Left Ureter with Intraluminal Device, Via Natural or Artificial Opening Endoscopic (ICD-10-PCS; 2025-07-11)
DX: N20.1 Calculus of ureter (principal); N17.9 Acute kidney failure, unspecified; K21.9 Gastro-esophageal reflux disease without esophagitis; I10 Essential (primary) hypertension; E03.9 Hypothyroidism, unspecified; Z87.442 Personal history of urinary calculi; F17.290 Nicotine dependence, other tobacco product, uncomplicated; Z79.82 Long term (current) use of aspirin; Z79.890 Hormone replacement therapy; E78.00 Pure hypercholesterolemia, unspecified; F41.9 Anxiety disorder, unspecified; N40.0 Benign prostatic hyperplasia without lower urinary tract symptoms; Z79.899 Other long term (current) drug therapy
CPT/HCPCS: 74176; 76000; 80048; 80053; 81003; 81015; 82043; 82570; 85025; 96361; 96374; 96375; 96376; 99285; C1894; C2617